=== PATIENT | male | born 1970 ===

== ENCOUNTER 2021-06-23 18:27 | Emergency (ER) | payer OTHER ==
[~2021-06-23] VITALS: Ht 177.8 cm; Wt 86.4 kg
[2021-06-23] MEDS ORDERED: LIDOCAINE 1% 10 ML VIAL PERC ONE (19:45)
[2021-06-23] MEDS ORDERED: BUPIVACAINE HCL/PF 0.25% 10 ML VIAL PERC ONE (19:45)
[2021-06-23] MEDS ORDERED: PERTUSS(ACELL),DIPH,TET VAC/PF 0.5 ML SYRINGE IM. ONE (19:45)
[2021-06-23] MEDS ORDERED: BACITRACIN 0.9 GM PACKET OINTMENT TP ONE (19:45)
[2021-06-23 20:11] LABS: APPEARANCE,URINE CLOUDY (CLEAR); GLUCOSE, URINE (UA) NEGATIVE (NEGATIVE); KETONES,URINE TRACE mg/dL (NEGATIVE); LEUKOCYTE ESTERASE ,URINE LARGE (NEGATIVE); OCCULT BLOOD,URINE SMALL (NEGATIVE); PROTEIN,URINE TRACE (NEGATIVE)
[2021-06-23 20:13] LABS: BILIRUBIN,URINE PRELIM. POSITIVE (NEGATIVE)
[2021-06-23 20:38] LABS: BACTERIA,URINE Few /HPF (None Seen); NITRATE,URINE NEGATIVE (NEGATIVE); SQUAMOUS EPITHELIAL CELL,UR Few /LPF (None Seen); WBC,URINE 26-50 /HPF (0-5)
[2021-06-23 21:40] VITALS: BP 141/85
== END 2021-06-23 23:00 | disposition home or self-care (01) ==
LOC: EMS 18:30
DX: S61.011A Laceration without foreign body of right thumb without damage to nail, initial encounter (principal); R30.9 Painful micturition, unspecified; W26.0XXA Contact with knife, initial encounter; Y93.89 Activity, other specified; Y92.89 Other specified places as the place of occurrence of the external cause; Y99.8 Other external cause status
CPT/HCPCS: 12001; 81001; 87077; 87086; 87186; 90471; 90715; 99283; J3490 ×2